=== PATIENT | male | born 1970 | race Caucasian/White ===

== ENCOUNTER 2023-09-13 10:32 | Observation (INO) | payer BC ==
[2023-09-13] MEDS ORDERED: SUBLIMAZE 100 MCG/2 ML IV ONE (10:57)
[2023-09-13] MEDS ORDERED: Zofran 4 MG/2 ML VIAL IV ONE (10:58)
[2023-09-13] MEDS ORDERED: Zofran 4 MG/2 ML VIAL ONE ×2 (11:10→16:29)
[2023-09-13] MEDS ORDERED: SUBLIMAZE 100 MCG/2 ML ONE ×2 (11:11→16:35)
[2023-09-13 11:20] LABS: Absolute Neutrophil Ct (ANC) 9.02 x10^3/uL (1.4-6.9); BASOPHIL % 0.7 % (0.0-0.4); Basophil (Absolute #) 0.08 x10^3/uL (0-0.4); Eosinophil % 1.6 % (0.00-5.0); Eosinophil (Absolute #) 0.19 x10^3/uL (0-0.5); Hematocrit 44.4 % (42-50); Hemoglobin 15.6 g/dL (12.5-18.0); IMMATURE GRAN # 0.07 x10^3u/L (0.00-0.03); IMMATURE GRAN % 0.6 % (0.00-0.4); Lymphocyte (Absolute #) 2.03 x10^3/uL (1.0-4.6); Lymphocytes % 16.6 % (24.0-44.0); Mean Cell Volume 85.4 fL (78-100); Mean Corpuscular Hgb Concent. 35.1 g/dL (32-36); Mean Platelet Volume 10.4 fL (7.5-11.0); Monocyte (Absolute #) 0.86 x10^3/uL (0.0-1.3); Neutrophil % 73.5 % (36.0-66.0); Platelet Count 234 x10^3/uL (150-450); Red Cell Distribution Width 12.2 % (11.5-14.0); White Blood Count 12.3 x10^3/uL (4.0-10.5)
--- NOTE | 2023-09-13 11:22 | ERPHSYRPT ---
- History of Present Illness Historian: patient, other (daughter) Exam Limitations: no limitations Patient Subjective Stated Complaint: C/O intermittent right sided abdominal pain for the past 4-6 months that has become constant for the past 2-3 days Triage Nursing Assessment: Patient ambulated back to ER without difficulties. He is alert and oriented. No SOB. Dry cough noted. Patient has a runny nose, clear drainage and keeps clearing his throat. QIU WNL. Denies changes in bowel habits. Right side of abdomen is tender. Physician History: 52 yo WM w RLQ pain x 2 days. Pain is 6/10 and sharp. Nothing makes it better or worse. Nausea/vomiting has resolved, and no diarrhea reported. He has also had a subjective fever/mild cough/coryza. Pt sent from clinic. Timing/Duration: day(s) (2 days.) Activities at Onset: rest Quality: sharpness Abdominal Pain Onset Location: RLQ Pain Radiation: no radiation Severity of Pain-Max: moderate Severity of Pain-Current: moderate Modifying Factors: Improves With: nothing Associated Symptoms: nausea (nausea/vomting resolved) Previous symptoms: no prior history Allergies/Adverse Reactions: piperacillin [From Zosyn] Allergy (Verified 09/13/23 12:51) Rapid Heart Beat tazobactam [From Zosyn] Allergy (Verified 09/13/23 12:51) Rapid Heart Beat Home Medications: No Reportable Medications [No Reported Medications] 09/13/23 [History] Hx Tetanus, Diphtheria Vaccination/Date Given: Yes Hx Influenza Vaccination/Date Given: No Hx Pneumococcal Vaccination/Date Given: No Immunizations Up to Date: Yes Travel Risk - International Travel Have you traveled outside of the country in past 3 weeks: No - Coronavirus Screening Are you exhibiting any of the following symptoms?: Yes Symptoms: Cough: New Onset, Headaches/Body Aches/Fatigue Close contact with a COVID-19 positive Pt in past 14-21 Days: No - Vaccine Status Have you recieved a Covid-19 vaccination: Yes Certified Cytotechnologist: Moderna - Vaccination Dates Date of 2cond Vaccination (if applicable): ? - Review of Systems Constitutional: No Symptoms, Fever, Malaise Eyes: No Symptoms Ears, Nose, & Throat: No Symptoms Respiratory: No Symptoms Cardiac: No Symptoms Abdominal/Gastrointestinal: No Symptoms, Abdominal Pain, Nausea, Vomiting, Diarrhea Genitourinary Symptoms: No Symptoms Musculoskeletal: No Symptoms Skin: No Symptoms Neurological: No Symptoms Psychological: No Symptoms Endocrine: No Symptoms Hematologic/Lymphatic: No Symptoms Immunological/Allergic: No Symptoms - Past Medical History Pertinent Past Medical History: No - Past Surgical History Past Surgical History: No - Social History Smoking Status: Current every day smoker How long have you smoked: 19 y.o. Exposure to second hand smoke: No Drug Use: marijuana Patient Lives Alone: Yes - Nursing Vital Signs Nursing Vital Signs: Initial Vital Signs Temperature 97.6 F 09/13/23 10:33 Pulse Rate 87 09/13/23 10:33 Respiratory Rate 20 09/13/23 10:33 Blood Pressure 132/96 09/13/23 10:33 O2 Sat by Pulse Oximetry 93 L 09/13/23 10:33 Pain Scale Pain Intensity 6 Borderline sats/Mild hypertension - Physical Exam General Appearance: no apparent distress Eye Exam: PERRL/EOMI, eyes nml inspection Ears, Nose, Throat Exam: normal ENT inspection, TMs normal, pharynx normal, moist mucous membranes Neck Exam: normal inspection, non-tender, supple, full range of motion, No meningismus, No mass, No Brudzinski, No Kernig's Respiratory Exam: normal breath sounds, lungs clear, airway intact, No respiratory distress Cardiovascular Exam: regular rate/rhythm, murmur (2/6 DAMI), capillary refill <2 sec Gastrointestinal/Abdomen Exam: soft, tenderness (Moderate TTP RLQ w rebound) Back Exam: normal inspection, normal range of motion, No CVA tenderness, No vertebral tenderness Extremity Exam: normal inspection, normal range of motion Neurologic Exam: alert, oriented x 3, cooperative, 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, normal mood/affect Skin Exam: normal color Lymphatic Exam: No adenopathy SpO2 Interpretation: borderline oxygenation SpO2: 93 O2 Delivery: Room Air - Course Nursing assessment & vital signs reviewed: Yes - CT Exams Abdomen/Pelvis CT Interpretation: Discussed w/radiologist (Acute appendicitis) Ordered Tests: Active Orders 24 hr Category Date Time Status NPO Diet 09/13/23 14:30 Active ABDOMEN AND PELVIS W CONTRAST [CT] Stat Exams 09/13/23 10:56 Completed AMYLASE Stat Lab 09/13/23 11:00 Completed CBC W DIFF Stat Lab 09/13/23 11:00 Completed CMP Stat Lab 09/13/23 11:00 Completed LIPASE Stat Lab 09/13/23 11:00 Completed UA W/RFX UR CULTURE Stat Lab 09/13/23 12:18 Completed Transfer Order Routine Transfer 09/13/23 Completed Medication Summary Generic Name Dose Route Start Last Admin Trade Name Roberto PRN Reason Stop Dose Admin Acetaminophen 325 mg 09/13/23 15:35 Acetaminophen 325 Mg Tablet PO 10/13/23 15:34 Q4H PRN PRN PAIN, FEVER, HEADACHE Hydrocodone Bitart/Acetaminophen 1 tab 09/13/23 15:39 Hydrocodone/Apap 5/325 1 Tab Tablet PO 09/18/23 15:38 Q4H PRN PRN PAIN Hydromorphone HCl 0.5 mg 09/13/23 15:39 Hydromorphone 1 Mg/1ml Inj IV 09/18/23 15:38 Q4H PRN PRN PAIN Sodium Chloride 1,000 mls @ 100 mls/hr 09/13/23 15:45 Sodium Chloride 0.9% 1000 Ml IV 10/13/23 15:44 .Q10H MOE Lactated Ringer's 1,000 mls @ 50 mls/hr 09/13/23 16:00 Lactated Ringers IV 09/14/23 11:59 .Q20H MOE Ondansetron HCl 4 mg 09/13/23 15:35 Ondansetron Hcl 4 Mg/2 Ml Vial IV 10/13/23 15:34 Q6H PRN PRN NAUSEA/VOMITING Discontinued Medications Generic Name Dose Route Start Last Admin Trade Name Roberto PRN Reason Stop Dose Admin Bupivacaine HCl Confirm 09/13/23 15:07 Bupivacaine Hcl 2.5 Mg/Ml 10 Ml Administered 09/13/23 15:08 Dose 10 ml .ROUTE .STK-MED ONE Famotidine 20 mg 09/13/23 15:47 Famotidine 20 Mg/1 Vial IV 09/13/23 15:48 1HRPRIOR ONE Fentanyl Citrate 50 mcg 09/13/23 10:57 09/13/23 11:16 Fentanyl Citrate 100 Mcg/2 Ml* Vial IV 09/13/23 10:58 50 mcg STAT ONE Administration Fentanyl Citrate Confirm 09/13/23 11:11 Fentanyl Citrate 100 Mcg/2 Ml* Vial Administered 09/13/23 11:12 Dose 100 mcg .ROUTE .STK-MED ONE Hydromorphone HCl 1 mg 09/13/23 13:15 09/13/23 13:22 Hydromorphone 1 Mg/1ml Inj IV 09/13/23 13:16 1 mg STAT ONE Administration Hydromorphone HCl Confirm 09/13/23 13:19 Hydromorphone 1 Mg/1ml Inj Administered 09/13/23 13:20 Dose 1 mg .ROUTE .STK-MED ONE Piperacillin Sod/Tazobactam 100 mls @ 200 mls/hr 09/13/23 12:34 09/13/23 12:41 Sod 3.375 gm/ Sodium Chloride IV 09/13/23 13:03 200 mls/hr STAT ONE Administration Sodium Chloride Confirm 09/13/23 12:38 Sodium Chloride 100ml Mini-Bag Plus Administered 09/13/23 12:39 Dose 100 mls @ ud IV .STK-MED ONE Cefoxitin Sodium 2 gm in 50 mls @ 100 mls/hr 09/13/23 15:00 09/13/23 14:24 Mefoxin 2 Gm Premix IV 09/13/23 15:29 100 mls/hr NOW ONE Administration Lactated Ringer's Confirm 09/13/23 15:07 Lactated Ringers Administered 09/13/23 15:08 Dose 1,000 mls @ ud IV .STK-MED ONE Lactated Ringer's Confirm 09/13/23 15:42 Lactated Ringers Administered 09/13/23 15:43 Dose 1,000 mls @ ud IV .STK-MED ONE Metoclopramide HCl 10 mg 09/13/23 15:50 Metoclopramide Hcl 10 Mg/2 Ml Vial IV 09/13/23 15:51 1HRPRIOR ONE Ondansetron HCl 4 mg 09/13/23 10:58 09/13/23 11:14 Ondansetron Hcl 4 Mg/2 Ml Vial IV 09/13/23 10:59 4 mg STAT ONE Administration Ondansetron HCl Confirm 09/13/23 11:10 Ondansetron Hcl 4 Mg/2 Ml Vial Administered 09/13/23 11:11 Dose 4 mg .ROUTE .STK-MED ONE Piperacillin Sod/Tazobactam Sod Confirm 09/13/23 12:37 Piperacillin/Tazobactam Sodium 3.375 Gm Vial Administered 09/13/23 12:38 Dose 3.375 gm IV .[employer] Lab/Rad Data: Laboratory Result Diagrams 09/13/23 11:00 09/13/23 11:00 Laboratory Results 09/13/23 09/13/23 09/13/23 Range/Units 12:18 11:00 11:00 WBC (4.0-10.5) x10^3/uL RBC (4.1-5.6) x10^6/uL Hgb (12.5-18.0) g/dL Hct (42-50) % MCV (78-100) fL MCH (26-32) pg MCHC (32-36) g/dL RDW (11.5-14.0) % Plt Count (150-450) x10^3/uL MPV (7.5-11.0) fL Gran % (36.0-66.0) % Immature Gran % (Auto) (0.00-0.4) % Nucleat RBC Rel Count (0.00-0.1) % Eos # (Auto) (0-0.5) x10^3/uL Immature Gran # (Auto) (0.00-0.03) x10^3u/L Absolute Lymphs (auto) (1.0-4.6) x10^3/uL Absolute Monos (auto) (0.0-1.3) x10^3/uL Absolute Nucleated RBC (0.00-0.01) x10^3u/L Lymphocytes % (24.0-44.0) % Monocytes % (0.0-12.0) % Eosinophils % (0.00-5.0) % Basophils % (0.0-0.4) % Absolute Granulocytes (1.4-6.9) x10^3/uL Basophils # (0-0.4) x10^3/uL Sodium 130 L (137-145) mmol/L Potassium 4.3 (3.5-5.1) mmol/L Chloride 97 L (98-107) mmol/L Carbon Dioxide 22 (22-30) mmol/L Anion Gap 14.8 (5-15) MEQ/L BUN 16 (9-20) mg/dL Creatinine 0.76 (0.66-1.25) mg/dL Estimated GFR 107.5 ML/MIN Glucose 113 H (74-106) mg/dL Calcium 9.6 (8.4-10.2) mg/dL Total Bilirubin 1.00 (0.2-1.3) mg/dL AST 55 (17-59) U/L ALT 68 H (0-50) U/L Alkaline Phosphatase 135 H (38-126) U/L Serum Total Protein 8.1 (6.3-8.2) g/dL Albumin 4.5 (3.5-5.0) g/dL Amylase 61 (30-110) U/L Lipase 68 (23-300) U/L Urine Color Yellow (Yellow) Urine Appearance Clear (Clear) Urine pH 5.5 (4.6-8.0) Ur Specific [place] >=1.030 A (1.005-1.030) Urine Protein Trace A (Negative) Urine Glucose (UA) Negative (Negative) mg/dL Urine Ketones Negative (Negative) Urine Blood Trace (Negative) Urine Nitrite Negative (Negative) Urine Bilirubin Negative (Negative) Urine Urobilinogen 1.0 A (0.2) mg/dL Ur Leukocyte Esterase Negative (Negative) U Hyaline Cast (Auto) NONE SEEN (0-2) /LPF Urine Microscopic RBC 0-2 (0-5) /HPF Urine Microscopic WBC 0-2 (0-5) /HPF Ur Epithelial Cells None Seen (None Seen) /HPF Urine Bacteria None Seen (None Seen) /HPF Urine Culture Reflexed NO (NO) Influenza Type A Ag NEGATIVE (NEGATIVE) Influenza Type B Ag NEGATIVE (NEGATIVE) RSV (PCR) POSITIVE (NEGATIVE) SARS-CoV-2 (PCR) NEGATIVE (NEGATIVE) 09/13/23 Range/Units 11:00 WBC 12.3 H (4.0-10.5) x10^3/uL RBC 5.20 (4.1-5.6) x10^6/uL Hgb 15.6 (12.5-18.0) g/dL Hct 44.4 (42-50) % MCV 85.4 (78-100) fL MCH 30.0 (26-32) pg MCHC 35.1 (32-36) g/dL RDW 12.2 (11.5-14.0) % Plt Count 234 (150-450) x10^3/uL MPV 10.4 (7.5-11.0) fL Gran % 73.5 H (36.0-66.0) % Immature Gran % (Auto) 0.6 H (0.00-0.4) % Nucleat RBC Rel Count 0.0 (0.00-0.1) % Eos # (Auto) 0.19 (0-0.5) x10^3/uL Immature Gran # (Auto) 0.07 H (0.00-0.03) x10^3u/L Absolute Lymphs (auto) 2.03 (1.0-4.6) x10^3/uL Absolute Monos (auto) 0.86 (0.0-1.3) x10^3/uL Absolute Nucleated RBC 0.00 (0.00-0.01) x10^3u/L Lymphocytes % 16.6 L (24.0-44.0) % Monocytes % 7.0 (0.0-12.0) % Eosinophils % 1.6 (0.00-5.0) % Basophils % 0.7 (0.0-0.4) % Absolute Granulocytes 9.02 H (1.4-6.9) x10^3/uL Basophils # 0.08 (0-0.4) x10^3/uL Sodium (137-145) mmol/L Potassium (3.5-5.1) mmol/L Chloride (98-107) mmol/L Carbon Dioxide (22-30) mmol/L Anion Gap (5-15) MEQ/L BUN (9-20) mg/dL Creatinine (0.66-1.25) mg/dL Estimated GFR ML/MIN Glucose (74-106) mg/dL Calcium (8.4-10.2) mg/dL Total Bilirubin (0.2-1.3) mg/dL AST (17-59) U/L ALT (0-50) U/L Alkaline Phosphatase (38-126) U/L Serum Total Protein (6.3-8.2) g/dL Albumin (3.5-5.0) g/dL Amylase (30-110) U/L Lipase (23-300) U/L Urine Color (Yellow) Urine Appearance (Clear) Urine pH (4.6-8.0) Ur Specific [place] (1.005-1.030) Urine Protein (Negative) Urine Glucose (UA) (Negative) mg/dL Urine Ketones (Negative) Urine Blood (Negative) Urine Nitrite (Negative) Urine Bilirubin (Negative) Urine Urobilinogen (0.2) mg/dL Ur Leukocyte Esterase (Negative) U Hyaline Cast (Auto) (0-2) /LPF Urine Microscopic RBC (0-5) /HPF Urine Microscopic WBC (0-5) /HPF Ur Epithelial Cells (None Seen) /HPF Urine Bacteria (None Seen) /HPF Urine Culture Reflexed (NO) Influenza Type A Ag (NEGATIVE) Influenza Type B Ag (NEGATIVE) RSV (PCR) (NEGATIVE) SARS-CoV-2 (PCR) (NEGATIVE) - Progress Progress: improved Progress Note: 09/13/23 14:39 Nursing note and vital signs reviewed. No food or housing insecurities noted. All lab results reviewed and shared with patient. CT result reviewed and shared with patient. 50 g IV fentanyl/4 mg IV Zofran with mild decrease in pain. Additional 1 mg IV Dilaudid for escalation of pain. Zosyn 4.5 g started, but patient immediately became nauseated, diaphoretic, developed a rash, and became tachycardic with some PVCs on the monitor. Patient recovered immediately after Zosyn was stopped. Spoke with Dr. Philip Ross, wants patient admitted to the hospitalist and will possibly perform an appendectomy later today. Observation admit per Dr. Farley. 2 g IV Mefoxin without any problems. Counseled pt/family regarding: lab results, diagnosis, rad results Medical Desision Making - Independent Historian Additional History obtained from: Child - Discussion of managment Care discussed with:: specialist Agreed on:: Treatment plan, place in obs Will see patient: in hospital - Diagnostic Testing Diagnostic test were ordered, analyzed, and reviewed by me: Yes Radiological Interpretation: Reviewed by me - Risk of complications The pt has a mod risk of morbidity or mortality based on: Need for minor surgical intervention in patient with know risk factors - Departure Departure Disposition: Observation Clinical Impression: Appendicitis, RSV bronchiolitis Condition: Stable Critical Care Time: No
[2023-09-13 11:34] LABS: ALBUMIN 4.5 g/dL (3.5-5.0); ANION GAP 14.8 MEQ/L (5-15); Calcium 9.6 mg/dL (8.4-10.2); Creatinine 1 0.76 mg/dL (0.66-1.25); EST GLOMERULAR FILTRATION RATE 107.5 ML/MIN; Potassium 4.3 mmol/L (3.5-5.1); Total Protein 8.1 g/dL (6.3-8.2)
[2023-09-13 11:55] LABS: INFLUENZA A NEGATIVE (NEGATIVE); INFLUENZA B NEGATIVE (NEGATIVE); SARS-CoV-2 Xpert Express NEGATIVE (NEGATIVE)
[2023-09-13 11:57] LABS: RESPIRATORY SYNCTIAL VIRUS POSITIVE (NEGATIVE)
--- NOTE | 2023-09-13 12:16 | XRAY ---
Indication: Right lower quadrant pain. Multiple contiguous images obtained through the abdomen and pelvis using 80 cc Isovue 370 contrast. Comparison: None Lung bases demonstrates mild/moderate bibasilar subsegmental atelectasis. Heart is not enlarged. Noncontrasted stomach and bowel loops appear nonobstructed. Prominent appendix up to 1.2 cm with enhancement and periappendiceal stranding favoring acute appendicitis. No free fluid/air. Remaining liver, gallbladder, pancreas, spleen, adrenal glands, kidneys, ureters, and bladder are unremarkable. Minimal aortic calcifications. No AAA or pathologic retroperitoneal lymphadenopathy. Osseous structures intact. Impression: CT findings favoring acute appendicitis. No complications.
[2023-09-13 12:26] LABS: Appearance Clear (Clear); Bacteria None Seen /HPF (None Seen); Bilirubin Negative (Negative); Blood Trace (Negative); Epithelial Cells None Seen /HPF (None Seen); Glucose, Urine Negative (Negative); Hyaline Casts NONE SEEN /LPF (0-2); Ketones Negative (Negative); Leukocyte Esterase Negative (Negative); Nitrite Negative (Negative); Ph 5.5 (4.6-8.0); Protein,Urine Dip Trace (Negative); RBC 0-2 /HPF (0-5); Specific Gravity >=1.030 (1.005-1.030); WBC 0-2 /HPF (0-5)
[2023-09-13 12:28] LABS: ADD URINE CULTURE? NO (NO)
[2023-09-13] MEDS ORDERED: PIPERACILLIN/TAZOBACTAM 3.375 GM in Sodium Chloride 100ML MINI-BAG PLUS 100 ML IV ONE (12:34)
[2023-09-13] MEDS ORDERED: PIPERACILLIN/TAZOBACTAM IV ONE (12:37)
[2023-09-13] MEDS ORDERED: Sodium Chloride 100ML MINI-BAG PLUS 100 ML IV ONE (12:38)
[2023-09-13] MEDS ORDERED: Hydromorphone 1 mg/ml Injection IV ONE (13:15)
[2023-09-13] MEDS ORDERED: Hydromorphone 1 mg/ml Injection ONE (13:19)
[2023-09-13] MEDS ORDERED: D5W 2 GM/100 ML IV ONE (13:59)
[2023-09-13] MEDS ORDERED: MEFOXIN IV ONE (13:59)
[2023-09-13] MEDS ORDERED: MEFOXIN 2 GM PREMIX** 2 GM/50 ML ML IV ONE (15:00)
--- NOTE | 2023-09-13 15:01 | PCM.HP ---
History of Present Illness - Chief Complaint Chief Complaint: Acute appendicitis/RSV Date: 09/13/23 History of Present Illness: is a 52 year old male with no pmhx presents today with complaints of sharp, constant RLQ with associated nausea/vomiting, and subjective fevers/chills which started two days ago. Patient states that he has had similar episodes over the past two year with nausea/vomiting that normally only lasted a day and resolved. Patient states movement aggravates pain, pain medications help. This episode got progressively worse until his pain was constant and unable to manage at home. Upon examination, pain noted at McBurneys point. Rovsing sign absent. Patient also states that he has had congestion and a productive cough with yellow sputum for the past week. Upon arrival patient was afebrile, normotensive, with spo2 @ 93% on RA. CT of t he abdomen/pelvis favoring acute appendicitis. Lab findings remarkable for leukocytosis with wbc at 12.3, hyponatremia with sodium at 130, ALT at 68, and alk phos at 135. RSV was also noted as positive. Dr. Philip Ross consulted, plans for surgical intervention possibly later tonight. Patient given Mefoxin, zosyn fentanyl/dilaudid and IVF. Patient did have a reaction to Zosyn in ER where he immediately states he felt flushed. - Review of Systems Constitutional: Fever, Chills Eyes: No Symptoms Ears, Nose, & Throat: Nose Congestion Respiratory: Cough Cardiac: No Symptoms Abdominal/Gastrointestinal: Abdominal Pain, Nausea, Vomiting Genitourinary Symptoms: No Symptoms Musculoskeletal: No Symptoms Skin: No Symptoms Neurological: No Symptoms Psychological: No Symptoms Endocrine: No Symptoms Hematologic/Lymphatic: No Symptoms Immunological/Allergic: No Symptoms Medications & Allergies Home Medications: Home Medication List No Reportable Medications [No Reported Medications] 09/13/23 [History Confirmed 09/13/23] Allergies/Adverse Reactions: Allergies Allergy/AdvReac Type Severity Reaction Status Date / Time piperacillin [From Zosyn] Allergy Rapid Verified 09/13/23 12:51 Heart Beat tazobactam [From Zosyn] Allergy Rapid Verified 09/13/23 12:51 Heart Beat - Past Medical History Past Medical History: No - Past Surgical History Past Surgical History: No - Social History Smoking Status: Current every day smoker How long have you smoked: 19 y.o. Exposure to second hand smoke: No Alcohol: Weekly Drug Use: marijuana - Physical Exam Vital Signs: Vital Signs - 24 hr Temp Pulse Resp BP BP Pulse Ox 09/13/23 14:44 93 L 09/13/23 14:00 79 29 H 130/82 09/13/23 13:31 75 16 138/77 90 L 09/13/23 13:00 71 22 148/80 91 L 09/13/23 12:31 73 21 139/109 09/13/23 12:03 78 21 130/86 96 09/13/23 11:30 120/82 09/13/23 11:23 75 27 H 146/87 93 L 09/13/23 11:00 86 23 135/95 92 L 09/13/23 10:43 86 22 132/96 09/13/23 10:33 97.6 F 87 20 132/96 93 L General Appearance: no apparent distress Neurologic Exam: alert, oriented x 3, cooperative Eye Exam: PERRL/EOMI Ears, Nose, Throat Exam: normal ENT inspection Neck Exam: normal inspection Respiratory Exam: normal breath sounds, lungs clear Cardiovascular Exam: regular rate/rhythm, normal heart sounds Gastrointestinal/Abdomen Exam: soft, normal bowel sounds, tenderness (Pain at McBurneys point, TTP RLQ) Rectal Exam: deferred Extremity Exam: normal inspection Skin Exam: normal color Results - Labs Lab/Micro Results: Lab Results-Last 24 Hours 09/13/23 09/13/23 09/13/23 Range/Units 11:00 11:00 11:00 WBC 12.3 H (4.0-10.5) x10^3/uL RBC 5.20 (4.1-5.6) x10^6/uL Hgb 15.6 (12.5-18.0) g/dL Hct 44.4 (42-50) % MCV 85.4 (78-100) fL MCH 30.0 (26-32) pg MCHC 35.1 (32-36) g/dL RDW 12.2 (11.5-14.0) % Plt Count 234 (150-450) x10^3/uL MPV 10.4 (7.5-11.0) fL Gran % 73.5 H (36.0-66.0) % Immature Gran % (Auto) 0.6 H (0.00-0.4) % Nucleat RBC Rel Count 0.0 (0.00-0.1) % Eos # (Auto) 0.19 (0-0.5) x10^3/uL Immature Gran # (Auto) 0.07 H (0.00-0.03) x10^3u/L Absolute Lymphs (auto) 2.03 (1.0-4.6) x10^3/uL Absolute Monos (auto) 0.86 (0.0-1.3) x10^3/uL Absolute Nucleated RBC 0.00 (0.00-0.01) x10^3u/L Lymphocytes % 16.6 L (24.0-44.0) % Monocytes % 7.0 (0.0-12.0) % Eosinophils % 1.6 (0.00-5.0) % Basophils % 0.7 (0.0-0.4) % Absolute Granulocytes 9.02 H (1.4-6.9) x10^3/uL Basophils # 0.08 (0-0.4) x10^3/uL Sodium 130 L (137-145) mmol/L Potassium 4.3 (3.5-5.1) mmol/L Chloride 97 L (98-107) mmol/L Carbon Dioxide 22 (22-30) mmol/L Anion Gap 14.8 (5-15) MEQ/L BUN 16 (9-20) mg/dL Creatinine 0.76 (0.66-1.25) mg/dL Estimated GFR 107.5 ML/MIN Glucose 113 H (74-106) mg/dL Calcium 9.6 (8.4-10.2) mg/dL Total Bilirubin 1.00 (0.2-1.3) mg/dL AST 55 (17-59) U/L ALT 68 H (0-50) U/L Alkaline Phosphatase 135 H (38-126) U/L Serum Total Protein 8.1 (6.3-8.2) g/dL Albumin 4.5 (3.5-5.0) g/dL Amylase 61 (30-110) U/L Lipase 68 (23-300) U/L Urine Color (Yellow) Urine Appearance (Clear) Urine pH (4.6-8.0) Ur Specific [place] (1.005-1.030) Urine Protein (Negative) Urine Glucose (UA) (Negative) mg/dL Urine Ketones (Negative) Urine Blood (Negative) Urine Nitrite (Negative) Urine Bilirubin (Negative) Urine Urobilinogen (0.2) mg/dL Ur Leukocyte Esterase (Negative) U Hyaline Cast (Auto) (0-2) /LPF Urine Microscopic RBC (0-5) /HPF Urine Microscopic WBC (0-5) /HPF Ur Epithelial Cells (None Seen) /HPF Urine Bacteria (None Seen) /HPF Urine Culture Reflexed (NO) Influenza Type A Ag NEGATIVE (NEGATIVE) Influenza Type B Ag NEGATIVE (NEGATIVE) RSV (PCR) POSITIVE (NEGATIVE) SARS-CoV-2 (PCR) NEGATIVE (NEGATIVE) 09/13/23 Range/Units 12:18 WBC (4.0-10.5) x10^3/uL RBC (4.1-5.6) x10^6/uL Hgb (12.5-18.0) g/dL Hct (42-50) % MCV (78-100) fL MCH (26-32) pg MCHC (32-36) g/dL RDW (11.5-14.0) % Plt Count (150-450) x10^3/uL MPV (7.5-11.0) fL Gran % (36.0-66.0) % Immature Gran % (Auto) (0.00-0.4) % Nucleat RBC Rel Count (0.00-0.1) % Eos # (Auto) (0-0.5) x10^3/uL Immature Gran # (Auto) (0.00-0.03) x10^3u/L Absolute Lymphs (auto) (1.0-4.6) x10^3/uL Absolute Monos (auto) (0.0-1.3) x10^3/uL Absolute Nucleated RBC (0.00-0.01) x10^3u/L Lymphocytes % (24.0-44.0) % Monocytes % (0.0-12.0) % Eosinophils % (0.00-5.0) % Basophils % (0.0-0.4) % Absolute Granulocytes (1.4-6.9) x10^3/uL Basophils # (0-0.4) x10^3/uL Sodium (137-145) mmol/L Potassium (3.5-5.1) mmol/L Chloride (98-107) mmol/L Carbon Dioxide (22-30) mmol/L Anion Gap (5-15) MEQ/L BUN (9-20) mg/dL Creatinine (0.66-1.25) mg/dL Estimated GFR ML/MIN Glucose (74-106) mg/dL Calcium (8.4-10.2) mg/dL Total Bilirubin (0.2-1.3) mg/dL AST (17-59) U/L ALT (0-50) U/L Alkaline Phosphatase (38-126) U/L Serum Total Protein (6.3-8.2) g/dL Albumin (3.5-5.0) g/dL Amylase (30-110) U/L Lipase (23-300) U/L Urine Color Yellow (Yellow) Urine Appearance Clear (Clear) Urine pH 5.5 (4.6-8.0) Ur Specific [place] >=1.030 A (1.005-1.030) Urine Protein Trace A (Negative) Urine Glucose (UA) Negative (Negative) mg/dL Urine Ketones Negative (Negative) Urine Blood Trace (Negative) Urine Nitrite Negative (Negative) Urine Bilirubin Negative (Negative) Urine Urobilinogen 1.0 A (0.2) mg/dL Ur Leukocyte Esterase Negative (Negative) U Hyaline Cast (Auto) NONE SEEN (0-2) /LPF Urine Microscopic RBC 0-2 (0-5) /HPF Urine Microscopic WBC 0-2 (0-5) /HPF Ur Epithelial Cells None Seen (None Seen) /HPF Urine Bacteria None Seen (None Seen) /HPF Urine Culture Reflexed NO (NO) Influenza Type A Ag (NEGATIVE) Influenza Type B Ag (NEGATIVE) RSV (PCR) (NEGATIVE) SARS-CoV-2 (PCR) (NEGATIVE) - Radiology Impressions Radiology Exams & Impressions: Radiology Procedures Category Date Time Status ABDOMEN AND PELVIS W CONTRAST [CT] Stat Exams 09/13/23 10:56 Completed Assessment/Plan (1) Appendicitis Current Visit: Yes Status: Acute Assessment & Plan: -CT of abdomen/pelvis consistent with acute appendicitis -Philip Ross, surgery consulted, plans for surgical intervention possibly this evening. -Given Mefoxin and Zosyn (patient did have a reaction, placed on allergy list) in ED, will defer to surgery for further antibiotic needs based on findings -Supportive care with IVF, anti-emetics, and pain control Code(s): K37 - UNSPECIFIED APPENDICITIS (2) Leukocytosis Current Visit: Yes Status: Acute Assessment & Plan: -Most likely secondary to appendicitis Code(s): D72.829 - ELEVATED WHITE BLOOD CELL COUNT, UNSPECIFIED (3) Hyponatremia Current Visit: Yes Status: Acute Assessment & Plan: -Most likely hypovolemic from Nausea/vomiting, will continue IVF, continue to monitor Code(s): E87.1 - HYPO-OSMOLALITY AND HYPONATREMIA (4) RSV bronchiolitis Current Visit: Yes Status: Acute Assessment & Plan: -Self limited -Supportive care -Supplemental oxygenation as needed to maintain spo2 >92% Code(s): J21.0 - ACUTE BRONCHIOLITIS DUE TO RESPIRATORY SYNCYTIAL VIRUS
[2023-09-13] MEDS ORDERED: Sensorcaine 0.25% 10 ML ONE ×2 (15:07→17:32)
[2023-09-13] MEDS ORDERED: Lactated Ringers 1,000 ML IV ONE ×2 (15:07→15:42)
[2023-09-13] MEDS ORDERED: TYLENOL 325 MG PO PRN (15:35)
[2023-09-13] MEDS ORDERED: Zofran 4 MG/2 ML VIAL IV PRN (15:35)
[2023-09-13] MEDS ORDERED: NORCO 5/325 MG PO PRN (15:39)
[2023-09-13] MEDS ORDERED: Hydromorphone 1 mg/ml Injection IV PRN (15:39)
[2023-09-13] MEDS ORDERED: Sodium Chloride 0.9% 1000 ML 1,000 ML IV SCH (15:45)
[2023-09-13] MEDS ORDERED: Pepcid 20 MG VIAL IV ONE (15:47)
[2023-09-13] MEDS ORDERED: Reglan 10 MG/2 ML IV ONE (15:50)
[2023-09-13] MEDS ORDERED: DUONEB 0.5-3 MG/3 ml Neb IH ONE ×2 (15:53→15:58)
[2023-09-13] MEDS ORDERED: Lactated Ringers 1,000 ML IV SCH (16:00)
[2023-09-13] MEDS ORDERED: Pre-Attached Lta Kit TP ONE (16:22)
[2023-09-13] MEDS ORDERED: OFIRMEV 100 ML IV ONE (16:22)
[2023-09-13] MEDS ORDERED: TORAdol 30 mg Injection ONE (16:29)
[2023-09-13] MEDS ORDERED: DIPRIVAN 200 MG/20 ML IV ONE (16:29)
[2023-09-13] MEDS ORDERED: Zemuron 100 MG/10 ML ONE (16:29)
[2023-09-13] MEDS ORDERED: Xylocaine-Mpf 2% 5 Ml Vial ONE (16:29)
[2023-09-13] MEDS ORDERED: BRIDION 200MG/2ML IV ONE ×2 (16:29→17:35)
[2023-09-13] MEDS ORDERED: Decadron 4 MG INJ ONE (16:29)
[2023-09-13] MEDS ORDERED: DEXMEDETOMIDINE 80 MCG/20ML-NS IV ONE (16:29)
[2023-09-13] MEDS ORDERED: ALBUTEROL/Proair Hfa MDI IH ONE (16:35)
[2023-09-13] MEDS ORDERED: Versed 2 MG/2 ML Injection ONE (16:35)
--- NOTE | 2023-09-13 16:37 | XRAY ---
Indication: RSV. Comparison: None Portable chest inflated and clear. Heart and mediastinal structures within normal limits. Bony thorax intact. Impression: Nonacute chest.
--- NOTE | 2023-09-13 16:44 | PCM.CONS ---
History of Present Illness - Reason for Consult Chief Complaint: Acute appendicitis/RSV Requesting Provider: RAYNA WATKINS MD Consulting Provider: THERESE MALIN MD History of Present Illness: is a 52 year old male. hx per chart review and d/w pt. 2 days jean started feeling bad thought he was getting a cold. upper respiratory sx, malaise, cough, some yellowish sputum. also with some abdominal pain. but today pain migrted to RLQ. constant, severe. to ED. workup with RSV and acute appy nonperforated. got flush feeling nausea, emesis after zosyn in ed. healthy other than smoker. no prior surgeries. no fam hx anesthetic issues. "Historian: patient, other (daughter) Exam Limitations: no limitations Patient Subjective Stated Complaint: C/O intermittent right sided abdominal pain for the past 4-6 months that has become constant for the past 2-3 days Triage Nursing Assessment: Patient ambulated back to ER without difficulties. He is alert and oriented. No SOB. Dry cough noted. Patient has a runny nose, clear drainage and keeps clearing his throat. QIU WNL. Denies changes in bowel habits. Right side of abdomen is tender. Physician History: 52 yo WM w RLQ pain x 2 days. Pain is 6/10 and sharp. Nothing makes it better or worse. Nausea/vomiting has resolved, and no diarrhea reported. He has also had a subjective fever/mild cough/coryza. Pt sent from clinic. Timing/Duration: day(s) (2 days.) Activities at Onset: rest Quality: sharpness Abdominal Pain Onset Location: RLQ Pain Radiation: no radiation Severity of Pain-Max: moderate Severity of Pain-Current: moderate Modifying Factors: Improves With: nothing Associated Symptoms: nausea (nausea/vomting resolved) Previous symptoms: no prior history Allergies/Adverse Reactions: piperacillin [From Zosyn] Allergy (Verified 09/13/23 12:51) Rapid Heart Beat tazobactam [From Zosyn] Allergy (Verified 09/13/23 12:51) Rapid Heart Beat Home Medications: No Reportable Medications [No Reported Medications] 09/13/23 [History] Hx Tetanus, Diphtheria Vaccination/Date Given: Yes Hx Influenza Vaccination/Date Given: No Hx Pneumococcal Vaccination/Date Given: No Immunizations Up to Date: Yes Travel Risk - International Travel Have you traveled outside of the country in past 3 weeks: No - Coronavirus Screening Are you exhibiting any of the following symptoms?: Yes Symptoms: Cough: New Onset, Headaches/Body Aches/Fatigue Close contact with a COVID-19 positive Pt in past 14-21 Days: No - Vaccine Status Have you recieved a Covid-19 vaccination: Yes Office Service Coordinator: Moderna - Vaccination Dates Date of 2cond Vaccination (if applicable): ? - Review of Systems Constitutional: No Symptoms, Fever, Malaise Eyes: No Symptoms Ears, Nose, & Throat: No Symptoms Respiratory: No Symptoms Cardiac: No Symptoms Abdominal/Gastrointestinal: No Symptoms, Abdominal Pain, Nausea, Vomiting, Diarrhea Genitourinary Symptoms: No Symptoms Musculoskeletal: No Symptoms Skin: No Symptoms Neurological: No Symptoms Psychological: No Symptoms Endocrine: No Symptoms Hematologic/Lymphatic: No Symptoms Immunological/Allergic: No Symptoms" Medications & Allergies Home Medications: Home Medication List No Reportable Medications [No Reported Medications] 09/13/23 [History Confirmed 09/13/23] Allergies/Adverse Reactions: Allergies Allergy/AdvReac Type Severity Reaction Status Date / Time piperacillin [From Zosyn] Allergy Rapid Verified 09/13/23 12:51 Heart Beat tazobactam [From Zosyn] Allergy Rapid Verified 09/13/23 12:51 Heart Beat - Past Medical History Past Medical History: No Neurological History: No Pertinent History ENT History: No Pertinent History Cardiac History: No Pertinent History Respiratory History: No Pertinent History Endocrine Medical History: No Pertinent History Musculoskelatal History: No Pertinent History GI Medical History: No Pertinent History History: No Pertinent History Pyscho-Social History: No Pertinent History Male Reproductive Disorders: No Pertinent History - Past Surgical History Past Surgical History: No Neuro Surgical History: No Pertinent History Cardiac History: No Pertinent History Respiratory Surgery: No Pertinent History GI Surgical History: No Pertinent History Genitourinary Surgical Hx: No Pertinent History Musculskeletal Surgical Hx: No Pertinent History Male Surgical History: No Pertinent History - Social History Smoking Status: Current every day smoker How long have you smoked: 19 y.o. Exposure to second hand smoke: No Alcohol: Weekly Drug Use: marijuana - Physical Exam Vital Signs: Vital Signs - 24 hr Temp Pulse Resp BP BP Pulse Ox 09/13/23 15:57 93 L 09/13/23 15:37 98.1 F 64 18 131/73 98 09/13/23 15:35 76 14 93 L 09/13/23 15:11 98.1 F 64 18 131/73 98 09/13/23 14:00 79 29 H 130/82 09/13/23 13:31 75 16 138/77 90 L 09/13/23 13:00 71 22 148/80 91 L 09/13/23 12:31 73 21 139/109 09/13/23 12:03 78 21 130/86 96 09/13/23 11:30 120/82 09/13/23 11:23 75 27 H 146/87 93 L 09/13/23 11:00 86 23 135/95 92 L 09/13/23 10:43 86 22 132/96 09/13/23 10:33 97.6 F 87 20 132/96 93 L Additional Findings: 09/13/23 16:42 nad nonlabored resps cough rrr nd, soft, ttp rlq localized guarding rebound. umbo hernia 1cm partially reducible. Results - Labs Lab/Micro Results: Lab Results-Last 24 Hours 09/13/23 09/13/23 09/13/23 Range/Units 11:00 11:00 11:00 WBC 12.3 H (4.0-10.5) x10^3/uL RBC 5.20 (4.1-5.6) x10^6/uL Hgb 15.6 (12.5-18.0) g/dL Hct 44.4 (42-50) % MCV 85.4 (78-100) fL MCH 30.0 (26-32) pg MCHC 35.1 (32-36) g/dL RDW 12.2 (11.5-14.0) % Plt Count 234 (150-450) x10^3/uL MPV 10.4 (7.5-11.0) fL Gran % 73.5 H (36.0-66.0) % Immature Gran % (Auto) 0.6 H (0.00-0.4) % Nucleat RBC Rel Count 0.0 (0.00-0.1) % Eos # (Auto) 0.19 (0-0.5) x10^3/uL Immature Gran # (Auto) 0.07 H (0.00-0.03) x10^3u/L Absolute Lymphs (auto) 2.03 (1.0-4.6) x10^3/uL Absolute Monos (auto) 0.86 (0.0-1.3) x10^3/uL Absolute Nucleated RBC 0.00 (0.00-0.01) x10^3u/L Lymphocytes % 16.6 L (24.0-44.0) % Monocytes % 7.0 (0.0-12.0) % Eosinophils % 1.6 (0.00-5.0) % Basophils % 0.7 (0.0-0.4) % Absolute Granulocytes 9.02 H (1.4-6.9) x10^3/uL Basophils # 0.08 (0-0.4) x10^3/uL Sodium 130 L (137-145) mmol/L Potassium 4.3 (3.5-5.1) mmol/L Chloride 97 L (98-107) mmol/L Carbon Dioxide 22 (22-30) mmol/L Anion Gap 14.8 (5-15) MEQ/L BUN 16 (9-20) mg/dL Creatinine 0.76 (0.66-1.25) mg/dL Estimated GFR 107.5 ML/MIN Glucose 113 H (74-106) mg/dL Calcium 9.6 (8.4-10.2) mg/dL Total Bilirubin 1.00 (0.2-1.3) mg/dL AST 55 (17-59) U/L ALT 68 H (0-50) U/L Alkaline Phosphatase 135 H (38-126) U/L Serum Total Protein 8.1 (6.3-8.2) g/dL Albumin 4.5 (3.5-5.0) g/dL Amylase 61 (30-110) U/L Lipase 68 (23-300) U/L Urine Color (Yellow) Urine Appearance (Clear) Urine pH (4.6-8.0) Ur Specific [place] (1.005-1.030) Urine Protein (Negative) Urine Glucose (UA) (Negative) mg/dL Urine Ketones (Negative) Urine Blood (Negative) Urine Nitrite (Negative) Urine Bilirubin (Negative) Urine Urobilinogen (0.2) mg/dL Ur Leukocyte Esterase (Negative) U Hyaline Cast (Auto) (0-2) /LPF Urine Microscopic RBC (0-5) /HPF Urine Microscopic WBC (0-5) /HPF Ur Epithelial Cells (None Seen) /HPF Urine Bacteria (None Seen) /HPF Urine Culture Reflexed (NO) Influenza Type A Ag NEGATIVE (NEGATIVE) Influenza Type B Ag NEGATIVE (NEGATIVE) RSV (PCR) POSITIVE (NEGATIVE) SARS-CoV-2 (PCR) NEGATIVE (NEGATIVE) 09/13/23 Range/Units 12:18 WBC (4.0-10.5) x10^3/uL RBC (4.1-5.6) x10^6/uL Hgb (12.5-18.0) g/dL Hct (42-50) % MCV (78-100) fL MCH (26-32) pg MCHC (32-36) g/dL RDW (11.5-14.0) % Plt Count (150-450) x10^3/uL MPV (7.5-11.0) fL Gran % (36.0-66.0) % Immature Gran % (Auto) (0.00-0.4) % Nucleat RBC Rel Count (0.00-0.1) % Eos # (Auto) (0-0.5) x10^3/uL Immature Gran # (Auto) (0.00-0.03) x10^3u/L Absolute Lymphs (auto) (1.0-4.6) x10^3/uL Absolute Monos (auto) (0.0-1.3) x10^3/uL Absolute Nucleated RBC (0.00-0.01) x10^3u/L Lymphocytes % (24.0-44.0) % Monocytes % (0.0-12.0) % Eosinophils % (0.00-5.0) % Basophils % (0.0-0.4) % Absolute Granulocytes (1.4-6.9) x10^3/uL Basophils # (0-0.4) x10^3/uL Sodium (137-145) mmol/L Potassium (3.5-5.1) mmol/L Chloride (98-107) mmol/L Carbon Dioxide (22-30) mmol/L Anion Gap (5-15) MEQ/L BUN (9-20) mg/dL Creatinine (0.66-1.25) mg/dL Estimated GFR ML/MIN Glucose (74-106) mg/dL Calcium (8.4-10.2) mg/dL Total Bilirubin (0.2-1.3) mg/dL AST (17-59) U/L ALT (0-50) U/L Alkaline Phosphatase (38-126) U/L Serum Total Protein (6.3-8.2) g/dL Albumin (3.5-5.0) g/dL Amylase (30-110) U/L Lipase (23-300) U/L Urine Color Yellow (Yellow) Urine Appearance Clear (Clear) Urine pH 5.5 (4.6-8.0) Ur Specific [place] >=1.030 A (1.005-1.030) Urine Protein Trace A (Negative) Urine Glucose (UA) Negative (Negative) mg/dL Urine Ketones Negative (Negative) Urine Blood Trace (Negative) Urine Nitrite Negative (Negative) Urine Bilirubin Negative (Negative) Urine Urobilinogen 1.0 A (0.2) mg/dL Ur Leukocyte Esterase Negative (Negative) U Hyaline Cast (Auto) NONE SEEN (0-2) /LPF Urine Microscopic RBC 0-2 (0-5) /HPF Urine Microscopic WBC 0-2 (0-5) /HPF Ur Epithelial Cells None Seen (None Seen) /HPF Urine Bacteria None Seen (None Seen) /HPF Urine Culture Reflexed NO (NO) Influenza Type A Ag (NEGATIVE) Influenza Type B Ag (NEGATIVE) RSV (PCR) (NEGATIVE) SARS-CoV-2 (PCR) (NEGATIVE) - Radiology Impressions Radiology Exams & Impressions: Radiology Procedures Category Date Time Status ABDOMEN AND PELVIS W CONTRAST [CT] Stat Exams 09/13/23 10:56 Completed CHEST 1 VIEW (PORTABLE) Stat Exams 09/13/23 15:45 Completed Assessment/Plan (1) Appendicitis Current Visit: Yes Status: Acute Assessment & Plan: acute ct confirmed appendicitis with localized guarding rebound. also with RSV. -to OR lap appy. he also has an umbililcal hernia which we will probably primarily repair. Code(s): K37 - UNSPECIFIED APPENDICITIS
[2023-09-13] MEDS ORDERED: Ephedrine Sulfate 50 MG/ML ONE (17:04)
--- NOTE | 2023-09-14 05:05 | PCM.DS ---
Discharge Summary Date of Admission: 09/13/23 14:50 Date of Discharge: 09/14/23 Admitting Physician: RAYNA WATKINS MD Consults: Consults on Case 09/13/23 14:50 Consult Surgery ROUTINE Primary Care Provider: ALANNA WATKINS Allergies Allergies piperacillin [From Zosyn] Allergy (Verified 09/13/23 12:51) Rapid Heart Beat tazobactam [From Zosyn] Allergy (Verified 09/13/23 12:51) Rapid Heart Beat Hospital Summary - Hospital Course Hospital Course: is a 52 year old male with no pmhx presents today with complaints of sharp, constant RLQ with associated nausea/vomiting, and subjective fevers/chills which started two days ago. Patient states that he has had similar episodes over the past two year with nausea/vomiting that normally only lasted a day and resolved. Patient states movement aggravates pain, pain medications help. This episode got progressively worse until his pain was constant and unable to manage at home. Upon examination, pain noted at [place] point. Rovsing sign absent. Patient also states that he has had congestion and a productive cough with yellow sputum for the past week. Upon arrival patient was afebrile, normotensive, with spo2 @ 93% on RA. CT of the abdomen/pelvis favoring acute appendicitis. Lab findings remarkable for leukocytosis with wbc at 12.3, hyponatremia with sodium at 130, ALT at 68, and alk phos at 135. RSV was also noted as positive. Dr. Philip Ross consulted, plans for surgical intervention possibly later tonight. Patient given Mefoxin, zosyn fentanyl/dilaudid and IVF. Patient did have a reaction to Zosyn in ER where he immediately states he felt flushed. Patient is s/p lap appy and doing well. Three puncture sites are cover ed in gauze/tegaderm, CDI, no erythema/streaking. Labs and vitals stable. Patient able to tolerate diet, pain under control, requesting discharge. Will send him home with inhaler for PRN use for sob/wheezing secondary to his RSV infection and pain medications. No need for antibiotic coverage. Discharge Note New Diagnosis: Acute appendicitis New Medications: [place]/Symbicort Follow Up: PCP/surgery Latest Assessment & Plan (1) Appendicitis Current Visit: Yes Status: Acute Assessment & Plan: -CT of abdomen/pelvis consistent with acute appendicitis -Philip Ross, surgery consulted, plans for surgical intervention possibly this evening. -Given Mefoxin and Zosyn (patient did have a reaction, placed on allergy list) in ED, will defer to surgery for further antibiotic needs based on findings -Supportive care with IVF, anti-emetics, and pain control Code(s): K37 - UNSPECIFIED APPENDICITIS (2) Leukocytosis Current Visit: Yes Status: Acute Assessment & Plan: -Most likely secondary to appendicitis Code(s): D72.829 - ELEVATED WHITE BLOOD CELL COUNT, UNSPECIFIED (3) Hyponatremia Current Visit: Yes Status: Acute Assessment & Plan: -Most likely hypovolemic from Nausea/vomiting, will continue IVF, continue to monitor Code(s): E87.1 - HYPO-OSMOLALITY AND HYPONATREMIA (4) RSV bronchiolitis Current Visit: Yes Status: Acute Assessment & Plan: -Self limited -Supportive care -Supplemental oxygenation as needed to maintain spo2 >92% Code(s): J21.0 - ACUTE BRONCHIOLITIS DUE TO RESPIRATORY SYNCYTIAL VIRUS I spent 35 minutes [id number] with the patient on the day of discharge performing discharge exam, discussing hospital stay and discharge instructions with patient and caregivers, preparation of discharge records, prescriptions & referral forms and addressing any questions/concerns the patient had as documented above. - Vitals & Intake/Output Vital Signs: Vital Signs Temperature 96.6 F 09/14/23 03:30 Pulse Rate 74 09/14/23 03:30 Respiratory Rate 17 09/14/23 04:00 Blood Pressure 115/60 09/14/23 03:30 O2 Sat by Pulse Oximetry 92 L 09/14/23 03:30 Intake & Output: Intake & Output 09/11/23 09/12/23 09/13/23 09/14/23 11:59 11:59 11:59 11:59 Intake Total 240 Balance 240 Weight 79.9 kg 80 kg - Lab Result Diagrams: 09/14/23 05:24 09/14/23 05:24 Lab Results-Last 24 Hrs: Lab Results-Last 24 Hours 09/13/23 09/13/23 09/13/23 Range/Units 11:00 11:00 11:00 WBC 12.3 H (4.0-10.5) x10^3/uL RBC 5.20 (4.1-5.6) x10^6/uL Hgb 15.6 (12.5-18.0) g/dL Hct 44.4 (42-50) % MCV 85.4 (78-100) fL MCH 30.0 (26-32) pg MCHC 35.1 (32-36) g/dL RDW 12.2 (11.5-14.0) % Plt Count 234 (150-450) x10^3/uL MPV 10.4 (7.5-11.0) fL Gran % 73.5 H (36.0-66.0) % Immature Gran % (Auto) 0.6 H (0.00-0.4) % Nucleat RBC Rel Count 0.0 (0.00-0.1) % Eos # (Auto) 0.19 (0-0.5) x10^3/uL Immature Gran # (Auto) 0.07 H (0.00-0.03) x10^3u/L Absolute Lymphs (auto) 2.03 (1.0-4.6) x10^3/uL Absolute Monos (auto) 0.86 (0.0-1.3) x10^3/uL Absolute Nucleated RBC 0.00 (0.00-0.01) x10^3u/L Lymphocytes % 16.6 L (24.0-44.0) % Monocytes % 7.0 (0.0-12.0) % Eosinophils % 1.6 (0.00-5.0) % Basophils % 0.7 (0.0-0.4) % Absolute Granulocytes 9.02 H (1.4-6.9) x10^3/uL Basophils # 0.08 (0-0.4) x10^3/uL Sodium 130 L (137-145) mmol/L Potassium 4.3 (3.5-5.1) mmol/L Chloride 97 L (98-107) mmol/L Carbon Dioxide 22 (22-30) mmol/L Anion Gap 14.8 (5-15) MEQ/L BUN 16 (9-20) mg/dL Creatinine 0.76 (0.66-1.25) mg/dL Estimated GFR 107.5 ML/MIN Glucose 113 H (74-106) mg/dL Calcium 9.6 (8.4-10.2) mg/dL Total Bilirubin 1.00 (0.2-1.3) mg/dL AST 55 (17-59) U/L ALT 68 H (0-50) U/L Alkaline Phosphatase 135 H (38-126) U/L Serum Total Protein 8.1 (6.3-8.2) g/dL Albumin 4.5 (3.5-5.0) g/dL Amylase 61 (30-110) U/L Lipase 68 (23-300) U/L Urine Color (Yellow) Urine Appearance (Clear) Urine pH (4.6-8.0) Ur Specific [place] (1.005-1.030) Urine Protein (Negative) Urine Glucose (UA) (Negative) mg/dL Urine Ketones (Negative) Urine Blood (Negative) Urine Nitrite (Negative) Urine Bilirubin (Negative) Urine Urobilinogen (0.2) mg/dL Ur Leukocyte Esterase (Negative) U Hyaline Cast (Auto) (0-2) /LPF Urine Microscopic RBC (0-5) /HPF Urine Microscopic WBC (0-5) /HPF Ur Epithelial Cells (None Seen) /HPF Urine Bacteria (None Seen) /HPF Urine Culture Reflexed (NO) Influenza Type A Ag NEGATIVE (NEGATIVE) Influenza Type B Ag NEGATIVE (NEGATIVE) RSV (PCR) POSITIVE (NEGATIVE) SARS-CoV-2 (PCR) NEGATIVE (NEGATIVE) 09/13/23 Range/Units 12:18 WBC (4.0-10.5) x10^3/uL RBC (4.1-5.6) x10^6/uL Hgb (12.5-18.0) g/dL Hct (42-50) % MCV (78-100) fL MCH (26-32) pg MCHC (32-36) g/dL RDW (11.5-14.0) % Plt Count (150-450) x10^3/uL MPV (7.5-11.0) fL Gran % (36.0-66.0) % Immature Gran % (Auto) (0.00-0.4) % Nucleat RBC Rel Count (0.00-0.1) % Eos # (Auto) (0-0.5) x10^3/uL Immature Gran # (Auto) (0.00-0.03) x10^3u/L Absolute Lymphs (auto) (1.0-4.6) x10^3/uL Absolute Monos (auto) (0.0-1.3) x10^3/uL Absolute Nucleated RBC (0.00-0.01) x10^3u/L Lymphocytes % (24.0-44.0) % Monocytes % (0.0-12.0) % Eosinophils % (0.00-5.0) % Basophils % (0.0-0.4) % Absolute Granulocytes (1.4-6.9) x10^3/uL Basophils # (0-0.4) x10^3/uL Sodium (137-145) mmol/L Potassium (3.5-5.1) mmol/L Chloride (98-107) mmol/L Carbon Dioxide (22-30) mmol/L Anion Gap (5-15) MEQ/L BUN (9-20) mg/dL Creatinine (0.66-1.25) mg/dL Estimated GFR ML/MIN Glucose (74-106) mg/dL Calcium (8.4-10.2) mg/dL Total Bilirubin (0.2-1.3) mg/dL AST (17-59) U/L ALT (0-50) U/L Alkaline Phosphatase (38-126) U/L Serum Total Protein (6.3-8.2) g/dL Albumin (3.5-5.0) g/dL Amylase (30-110) U/L Lipase (23-300) U/L Urine Color Yellow (Yellow) Urine Appearance Clear (Clear) Urine pH 5.5 (4.6-8.0) Ur Specific [place] >=1.030 A (1.005-1.030) Urine Protein Trace A (Negative) Urine Glucose (UA) Negative (Negative) mg/dL Urine Ketones Negative (Negative) Urine Blood Trace (Negative) Urine Nitrite Negative (Negative) Urine Bilirubin Negative (Negative) Urine Urobilinogen 1.0 A (0.2) mg/dL Ur Leukocyte Esterase Negative (Negative) U Hyaline Cast (Auto) NONE SEEN (0-2) /LPF Urine Microscopic RBC 0-2 (0-5) /HPF Urine Microscopic WBC 0-2 (0-5) /HPF Ur Epithelial Cells None Seen (None Seen) /HPF Urine Bacteria None Seen (None Seen) /HPF Urine Culture Reflexed NO (NO) Influenza Type A Ag (NEGATIVE) Influenza Type B Ag (NEGATIVE) RSV (PCR) (NEGATIVE) SARS-CoV-2 (PCR) (NEGATIVE) - Radiology Exams Ordered Rad Exams-Entire Visit: Radiology Procedures Category Date Time Status ABDOMEN AND PELVIS W CONTRAST [CT] Stat Exams 09/13/23 10:56 Completed CHEST 1 VIEW (PORTABLE) Stat Exams 09/13/23 15:45 Completed - Procedures and Test Procedures and Tests throughout Hospitalization: Therapy Orders & Screens 09/13/23 15:35 Respiratory Therapy Consult ONCE Comment: Reason For Exam: Diagnosis: Acute appendicitis/RSV 09/13/23 15:36 Smoking Cessation Education ONCE Comment: Diagnosis: Acute appendicitis/RSV Smoking Status: Current every day smoker How long have you smoked: 19 y.o. Do you dip or chew tobacco: Yes Discharge Exam General Appearance: no apparent distress Neurologic Exam: alert, oriented x 3, cooperative Eye Exam: PERRL Ears, Nose, Throat Exam: normal ENT inspection Neck Exam: normal inspection Respiratory Exam: wheezing (LLL) Cardiovascular Exam: regular rate/rhythm, normal heart sounds Gastrointestinal/Abdomen Exam: soft, normal bowel sounds, tenderness (at incision site) Male Genitalia Exam: deferred Rectal Exam: deferred Back Exam: normal inspection Extremity Exam: normal inspection Wound Assessment: Skin/Wound Assessment Wound/Incision Assessment Start: 09/13/23 15:15 Text: Status: Active Freq: Q4H Protocol: Document 09/14/23 04:00 MH (Rec: 09/14/23 04:15 [id number]) Wound/Incision Assessment Abdomen Wound Assessment Shift Assessment Wound Stage Non Pressure Wound Dressing Status Dry & Intact Drainage Amount None Comment dressing is C/D/I Final Diagnosis/Problem List - Final Discharge Diagnosis/Problem (1) Appendicitis Current Visit: Yes Status: Acute Code(s): K37 - UNSPECIFIED APPENDICITIS (2) Leukocytosis Current Visit: Yes Status: Acute Code(s): D72.829 - ELEVATED WHITE BLOOD CELL COUNT, UNSPECIFIED (3) Hyponatremia Current Visit: Yes Status: Acute Code(s): E87.1 - HYPO-OSMOLALITY AND HYPONATREMIA (4) RSV bronchiolitis Current Visit: Yes Status: Acute Code(s): J21.0 - ACUTE BRONCHIOLITIS DUE TO RESPIRATORY SYNCYTIAL VIRUS - Discharge Disposition: Home, Self-Care Condition: Stable Prescriptions: New Hydrocodone/Acetaminophen [Hydrocodone-Acetamin 5-325 mg] 1 tab PO Q6HPRN PRN 7 Days #20 tablet MDD 4 PRN Reason: Pain Budesonide/Formoterol Fumarate [Budesonide-Formoterol 80-4.5] 2 puffs IH BIDPRN PRN 30 Days #1 inhaler PRN Reason: Shortness Of Breath/Wheezing Instructions: Respiratory Syncytial Virus, Adult (DC), Appendectomy, Laparoscopic Surgery (DC) Additional Instructions: 1. No lifting for two (2) weeks. Nothing heavier than 1 gallon of milk. We do not want you straining, thus possible opening the incision. 2. If pain develops in shoulder, apply a heating pad on low setting. The pain is caused from the air they inflate the belly with. The air traps under the diaphragm and refers pain to the shoulder. The pain medication will probably not help, just the heating pad or walking may relieve the pain. This pain should go away in 3-4 days. 3. You may shower after 24 hours. You may take a tub bath in two weeks. (Leave the steri strips alone to the puncture sites) 4. Some nausea is normal. If you experience nausea or vomiting, limit your food intake. If the nausea and vomiting last longer than 24 hours, contact the doctor. 5. Take the pain medication as prescribed. Some pain and swelling is normal. Our goal is to keep your pain at a tolerable level. If the pain is not tolerable, contact the doctor. Usually you can transition to Tylenol and Ibuprofen after a couple days. 6. Remove band aid/dressing in 24 hours. You may need to apply another bandaide or dressing if the site is still oozing. This is normal. If you are saturating the dressing every hour, contact the doctor. 7. Leave steri strips in place for 1 week or until you return to the office. 8. If drainage of pus or foul odor or fever develops contact your doctor. 9. It is important to cough and deep breath after your surgery several times a day. This helps prevent lung infections. When coughing, support the surgical area with a pillow. Follow up with: ALANNA WATKINS [Primary Care Provider] - ROSIBEL DAVALOS [COURTESY STAFF] - Call for Appointment (2 WEEK FOLLOW UP ) Forms: Discharge Instructions
[2023-09-14 05:50] LABS: Absolute Neutrophil Ct (ANC) 8.55 x10^3/uL (1.4-6.9); BASOPHIL % 0.2 % (0.0-0.4); Basophil (Absolute #) 0.02 x10^3/uL (0-0.4); Eosinophil (Absolute #) 0 x10^3/uL (0-0.5); Hematocrit 39.6 % (42-50); Hemoglobin 13.9 g/dL (12.5-18.0); IMMATURE GRAN # 0.07 x10^3u/L (0.00-0.03); IMMATURE GRAN % 0.7 % (0.00-0.4); Lymphocytes % 9.9 % (24.0-44.0); Mean Cell Volume 85.5 fL (78-100); Mean Corpuscular Hgb Concent. 35.1 g/dL (32-36); Mean Platelet Volume 10.7 fL (7.5-11.0); Monocytes % 4.9 % (0.0-12.0); Neutrophil % 84.3 % (36.0-66.0); Platelet Count 249 x10^3/uL (150-450); Red Blood Count 4.63 x10^6/uL (4.1-5.6); Red Cell Distribution Width 12.4 % (11.5-14.0); White Blood Count 10.1 x10^3/uL (4.0-10.5)
[2023-09-14 06:21] LABS: ALBUMIN 3.9 g/dL (3.5-5.0); ANION GAP 13.2 MEQ/L (5-15); BILIRUBIN,TOTAL 0.7 mg/dL (0.2-1.3); Creatinine 1 0.82 mg/dL (0.66-1.25); Total Protein 7.3 g/dL (6.3-8.2)
[2023-09-14 06:58] VITALS: BP 123/73; PULSE 80; TEMP 97.5; O2SAT 93
[2023-09-14 08:37] VITALS: RESP 20
--- NOTE | 2023-09-16 14:44 | OP ---
SURGERY DATE/TIME: 09/13/2023 1650 PREOPERATIVE DIAGNOSIS: Acute appendicitis. POSTOPERATIVE DIAGNOSES: Acute appendicitis, nonperforated. PROCEDURES: 1) Laparoscopic appendectomy. 2) Primary repair of reducible umbilical hernia with 1 cm defect. SURGEON: Piyush Ross M.D. ANESTHESIA: General. ESTIMATED BLOOD LOSS: Minimal. CONDITION: Patient condition stable. COMPLICATIONS: None. SPECIMEN: Appendix. HISTORY: The patient is a 52-year-old male with a two day of abdominal pain and also with upper respiratory symptoms with pain in the right lower quadrant and went to the emergency department. CT scan confirmed acute appendicitis. He does have localized guarding and rebound on exam. He also was respiratory syncytial virus positive. Discussed with the patient the risk of infection, bleeding, hernia, hernia recurrence that he does have a small umbilical hernia that we will probably do a primary repair and he would like to proceed with that. FINDINGS: Nonperforated appendix. A 1 cm umbilical defect closed with 0 PDS. DESCRIPTION OF PROCEDURE: The patient was brought to the operating room. General anesthesia was induced. Routinely positioned, prepped and draped. Time out was performed. Veress needle was inserted in left upper quadrant. Pneumoperitoneum was established. A 5 mm Optiview trocar placed in left lower quadrant. Abdomen was surveyed. After 5 mm suprapubic trocar placed, a supraumbilical incision is made as there is a 1 cm fascial defect with about 2 cm of preperitoneal fat protruding through it and carried down to the hernia sac. The hernia sac is completely mobilized and then excised. The fascial rim was healthy circumferentially but it did have to be partially mobilized off the stalk but not totally mobilized. The 12 trocar was then placed through the 1 cm fascial defect and the abdomen is surveyed. There is maximiliano appendicitis with some fibrinous reaction at the appendix. The mesoappendix is taken. The base of the appendix is healthy, satisfactory taken with white load EDITA stapler. The specimen is placed in a bag and removed through the 12 trocar site. The staple line is satisfactory, healthy and hemostatic. The hernia defect is then closed with interrupted 0 PDS sutures and that is satisfactory. The suprpubic port removed under direct visualization of the left lower quadrant port. Left lower quadrant port used for desufflation and removed. Marcaine was injected at all of the surgical sites. The umbilical stalk tacked down with 3-0 Sutures. Skin closed with 4-0 Vicryl sutures. Steri-Strips and sterile dressings applied. All counts were correct. The patient tolerated the procedure well. Plan is for ex-tubation. RECOMMENDATIONS: As long as he is doing well, he will be able to discharge postoperative day one as long as he is tolerating p.o. and pain controlled. Follow up in office in two weeks.
== END 2023-09-14 09:53 | disposition home or self-care (01) ==
LOC: ED 10:32 → MED SURG 14:50
PROVIDERS: ADMIT Internal Medicine; ATTEND Internal Medicine
DX: K35.80 Unspecified acute appendicitis (principal); K42.9 Umbilical hernia without obstruction or gangrene; D72.829 Elevated white blood cell count, unspecified; E87.1 Hypo-osmolality and hyponatremia; J21.0 Acute bronchiolitis due to respiratory syncytial virus; F17.200 Nicotine dependence, unspecified, uncomplicated; Z20.828 Contact with and (suspected) exposure to other viral communicable diseases
CPT/HCPCS: 0241U; 36000; 36415; 44970; 49591; 71045; 74177; 80053; 81001; 82150; 83690; 85025; 93268; 94640; 94762; 96374; 96375; 99285; G0378; Q3014; J0694; J1100; J1170; J1885; J2250; J2405; J2704; J3010; A9270-GY